=== PATIENT | female | born 1935 | race Caucasian/White ===

== ENCOUNTER 2017-01-03 18:05 | Emergency (ER) | payer MEDICARE, OTHER ==
[2017-01-03] MEDS ORDERED: hydrOXYzine HCL TAB* 25 MG PO ONE (21:08)
[2017-01-03] MEDS ORDERED: predniSONE TAB* 20 MG PO ONE (21:08)
[2017-01-03] MEDS ORDERED: Famotidine TAB* 20 MG PO ONE (21:08)
[2017-01-04 04:01] VITALS: BP 156/74
== END 2017-01-03 23:00 | disposition home or self-care (01) ==
LOC: ED 18:05
DX: R21 Rash and other nonspecific skin eruption (principal)
CPT/HCPCS: 99282; A9270-GY; J7512

== ENCOUNTER 2017-03-15 11:29 | Emergency (ER) | payer MEDICARE, OTHER ==
[2017-03-15] MEDS ORDERED: Ibuprofen TAB* 400 MG PO ONE (12:25)
[2017-03-15] MEDS ORDERED: traMADol TAB* 50 MG PO ONE (12:25)
[2017-03-15 13:16] VITALS: BP 173/66
--- NOTE | 2017-03-15 18:41 | ED ---
Hilario Robertson Auryana, scribed for Teddy Bell MD on 03/15/17 at 1225 . Neck Pain - HPI Summary HPI Summary: 81 year old female presents with neck pain. Patient reports that the pain started 5 days ago while sleeping and was initially locates in the head - reports " whole head- face, sides" and hurts to touch but is now also present in her neck and shoulder. Daughter reports that her symptoms improved Friday and went about normal activities, but on Friday her symptoms worsened. She reports that the pain is a constant throbbing pain and does not radiate. She also c/o of decreased appetite due to the severity of the pain. She denies any fever, chills, photophobia, abdominal pain, arm pain, lower extremity pain, head injuries, or any falls. She reports normal urination and normal ambulation. She reports 1/2 tablet of Tylenol every 3-4 hours without any improvement. She denies any exposure to ticks - no gardening or pets. She is not on any blood thinners. Patient reports 1 similar episode about one year ago that resolved after several months. PMHx is significant for HTN ( medication complaint), but no history of DM. SHx is significant for 3-4 oz. of wine a day but denies any tobacco use. Dr. Prasad is her PCP. - History of Current Complaint Chief Complaint: EDNeckComplaint Stated Complaint: RADIATING NECK PAIN Time Seen by Provider: 03/15/17 11:55 Hx Obtained From: Patient Hx Last Menstrual Period: N/A Onset/Duration Of Injury/Symptoms: Days Timing: Constant Onset/Duration: Gradual Onset, Started days ago, Still Present, Worse Since - FRIDAY- 1 DAY AGO Severity Initially: Mild Severity Currently: Moderate Pain Intensity: 8 Pain Scale Used: 0-10 Numeric Location: Discrete At: - started at whole head and has now radiated down the neck and shoulder Alleviating Factors: Nothing Related History: Similar Episode/Dx As: - see HPI - Allergies/Home Medications Allergies/Adverse Reactions: Allergies Allergy/AdvReac Type Severity Reaction Status Date / Time Penicillins Allergy Unknown Verified 03/15/17 11:32 Reaction Details PMH/Surg Hx/FS Hx/Imm Hx Endocrine/Hematology History: Denies: Hx Diabetes, Hx Thyroid Disease Cardiovascular History: Reports: Hx Hypertension Denies: Hx Pacemaker/ICD Respiratory History: Denies: Hx Asthma, Hx Chronic Obstructive Pulmonary Disease (COPD) GI History: Denies: Hx Ulcer Musculoskeletal History: Denies: Hx Scoliosis Sensory History: Denies: Hx Hearing Aid Neurological History: Reports: Hx Headaches Denies: Other Neuro Impairments/Disorders Psychiatric History: Reports: Hx Panic Disorder - anxiety does ok mri does not like the noise with mri - Cancer History Hx Chemotherapy: No Hx Radiation Therapy: No - Surgical History Surgery Procedure, Year, and Place: LEFT BREAST LUMPECTOMY 1957 - Immunization History Date of Tetanus Vaccine: utd Date of Influenza Vaccine: utd Infectious Disease History: No Infectious Disease History: Denies: Hx Hepatitis, Hx Human Immunodeficiency Virus (HIV), Traveled Outside the [place] in Last 30 Days - Family History Known Family History: Positive: Cardiac Disease, Diabetes - brother -weight related, Other - breast ca - Social History Alcohol Use: Daily Alcohol Amount: 1 glass of wine - apr 3 oz. Substance Use Type: Reports: None, Prescribed Smoking Status (MU): Never Smoked Tobacco Review of Systems Constitutional: Negative Negative: Fever, Chills Eyes: Negative Negative: Photophobia ENT: Negative Cardiovascular: Negative Respiratory: Negative Positive: Other - decreased appetite due to pain. Negative: Abdominal Pain Genitourinary: Negative Positive: Other - head pain that radiates to the neck and to the shoulders Skin: Negative Neurological: Negative Psychological: Normal All Other Systems Reviewed And Are Negative: Yes Physical Exam - Summary Physical Exam Summary: The patient is well-nourished and is in mild acute pain distress. The skin is warm and dry and skin color reflects adequate perfusion. HEENT: The head is normocephalic and atraumatic. The pupils are equal and reactive. The conjunctivae are clear and without drainage. Patient does not have any photophobia. Nares are patent and without drainage. Mouth reveals moist mucous membranes and the throat is without erythema and exudate. The external ears are intact. The ear canals are patent and without drainage. The tympanic membranes are intact. Neck is supple with full range of motion and non-tender. There are no carotid bruits. There is no neck vein distension. There is tenderness at the atlanto- occipital joint. There is no spinous process tenderness. There are spasms over the paracervical vertebrae. Respiratory: Chest is non-tender. Lungs are clear to auscultation and breath sounds are symmetrical and equal. Cardiovascular: Hear is regular rate and rhythm. There is no murmur or rub auscultated. There is no peripheral edema and pulses are symmetrical and equal. Abdomen: The abdomen is soft and non-tender. There are normal bowel sounds heard in all four quadrants and there is no organomegaly palpated. Musculoskeletal: There is no back pain noted. Extremities are non-tender with full range of motion and good motor strength. There is good capillary refill. There is no peripheral edema or calf tenderness elicited. There is no tenderness in the thoracic or lumbar region. Neurological: Patient is alert and oriented to person, place and time. The patient has symmetrical motor strength in all four extremities. Cranial nerves are grossly intact. Deep tendon reflexes are symmetrical and equal in all four extremities. No focal neurological deficits. Psychiatric: The patient has an appropriate affect and does not exhibit any anxiety or depression. Triage Information Reviewed: Yes Vital Signs On Initial Exam: Initial Vitals Temp Pulse Resp BP Pulse Ox 99.5 F 68 16 151/61 96 03/15/17 11:32 03/15/17 11:32 03/15/17 11:32 03/15/17 11:32 03/15/17 11:32 Vital Signs Reviewed: Yes - [place] Coma Scale Coma Scale Total: 15 Diagnostics - Vital Signs Vital Signs Temp Pulse Resp BP Pulse Ox 03/15/17 11:32 99.5 F 68 16 151/61 96 - Laboratory Lab Statement: Any lab studies that have been ordered have been reviewed, and results considered in the medical decision making process. Re-Evaluation - Re-Evaluation First Eval Re-Evaluation Time: 13:06 - patients symptoms are much improved Change: Improved Neck Course/Dx - Course Assessment/Plan: 81 year old female presents with neck pain. Patient reports that the pain started 5 days ago while sleeping and was initially locates in the head - reports "whole head- face, sides" and hurts to touch but is now also present in her neck and shoulder. Daughter reports that her symptoms improved Friday and went about normal activities, but on Friday her symptoms worsened. She reports that the pain is a constant throbbing pain and does not radiate. She also c/o of decreased appetite due to the severity of the pain. She denies any fever, chills, photophobia, abdominal pain, arm pain, lower extremity pain, head injuries, or any falls. She reports normal urination and normal ambulation. She reports 1/2 tablet of Tylenol every 3-4 hours without any improvement. She denies any exposure to ticks - no gardening or pets. She is not on any blood thinners. Patient reports 1 similar episode about one year ago that resolved after several months. PMHx is significant for HTN (medication complaint), but no history of DM. SHx is significant for 3-4 oz. of wine a day but denies any tobacco use. Dr. Prasad is her PCP. Her daughter reports an allergy to a previous medication and that the patient is reluctant to take anything but Tylenol, however, Tylenol has not improved her symptoms. Pain management was discussed and the patient and daughter agreed to try ibuprofen and tramadol for pain management. On re-evaluation, the patient reports improvement of symptoms. Patient will be discharged home with prescription for ibuprofen and tramadol and follow up with PCP. Patient agrees with plan. Dx: neck pain, headache. - Diagnoses Differential Dx/HQI/PQRI: Positive: Other - degenerative disc disease, acute cervical strain and sprain Provider Diagnoses: Neck pain, Headache Discharge - Discharge Plan Condition: Stable Disposition: HOME Prescriptions: Ibuprofen TAB* [Advil TAB*] 400 mg PO Q8H PRN #20 tab PRN Reason: pain traMADol TAB* [Ultram*] 25 mg PO Q8H PRN #15 tab MDD 3 PRN Reason: pain Patient Education Materials: Neck Pain (ED), Acute Headache (ED) Referrals: Mela Prasad MD [Primary Care Provider] - 2 Days The documentation as recorded by the Hilario harrison Auryana accurately reflects the service I personally performed and the decisions made by , Teddy Bell MD.
== END 2017-03-15 13:21 | disposition home or self-care (01) ==
LOC: ED 11:29
DX: M54.2 Cervicalgia (principal); R51 Headache; I10 Essential (primary) hypertension; Z88.0 Allergy status to penicillin; F41.0 Panic disorder [episodic paroxysmal anxiety]
CPT/HCPCS: 99282; A9270-GY

== ENCOUNTER 2017-05-29 11:09 | Inpatient (IN) | payer MEDICARE, OTHER ==
[2017-05-29] MEDS ORDERED: NS 0.9% 1000 ML* 1,000 ML IV ONE (11:54)
[2017-05-29 12:56] LABS: Hematocrit 42 % (35-47); Hemoglobin 13.8 g/dl (12.0-16.0); Mean Corpuscular HGB Conc 33 g/dl (31-36); Mean Corpuscular Hemoglobin 27 pg (27-31); Mean Corpuscular Volume 81 fL (80-97); Mean Platelet Volume 9 um3 (7.4-10.4); Red Blood Count 5.21 10^6/ul (4.0-5.4); Red Cell Distribution Width 18 % (10.5-15); White Blood Count 11.5 10^3/ul (3.5-10.8)
[2017-05-29 13:13] LABS: Albumin 3.6 g/dL (3.2-5.2); BUN/Creatinine Ratio 31.7 (8-20); Calcium 8.7 mg/dL (8.6-10.3); EGFR African American 116.3 (>60); EGFR Non-African American 90.5 (>60); Globulin 2.3 g/dL (2-4); Magnesium 1.7 mg/dL (1.9-2.7); Phosphorus 2.6 mg/dL (2.5-5.0); Potassium 2.9 mmol/L (3.5-5.0); Total Bilirubin 0.8 mg/dL (0.2-1.0); Total Protein 5.9 g/dL (6.4-8.9)
--- NOTE | 2017-05-29 14:36 | HP ---
HISTORY AND PHYSICAL: DATE OF ADMISSION: 05/29/17. HISTORY OF PRESENT ILLNESS: Andria Thurston is an 81-year-old woman admitted with weakness, refusal to take medications, who has been eating and drinking very little since her 5 days ago. He had been sick for 6 years with renal cell cancer, had done fairly well until recently when he was placed on hospice. The patient was present when he . Since then she has been staying in bed. She has been refusing to eat or drink except for perhaps 2 crackers and a small amount of cheese every day. She was brought by her family to the emergency room on 05/26/17. She had a psychiatric evaluation. At that time she was felt to be sad, depressed. It was noted that she had attempted suicide with a drug overdose in 1976, had previous delusional behavior. It was deemed that she was not appropriate for mental health admission at that time. She was medically cleared. She was sent home. Since then she has been staying in bed, not eating. She has expressed psychotic thoughts such as that the devil was coming to take her and that she was going to burn in hell. The family called me. The radiation oncology therapist from [facility], Lalita Vilchis, went to see her yesterday, and felt that she was not able to deal with her grief until her psychiatric condition is addressed. She had been giving away her personal items such as her wedding ring to her daughter, and was felt to be suicide risk. I spoke with Dr. Kuhn who recommended she come back to the emergency room. I am seeing her at this time and will be admitting her. PAST MEDICAL HISTORY: Is otherwise significant for the following medical problems: 1. Hypertension. 2. History of depression, on sertraline. 3. Osteopenia. 4. Chronic neck pain. 5. History of anxiety. PAST SURGICAL HISTORY: Includes breast biopsy, age 22, benign. CURRENT MEDICATIONS: Are as follows but she has not been taking them regularly for several weeks according to the family: 1. Magnesium 250 mg daily. 2. Sertraline 100 mg daily. 3. Tylenol 500 mg half tablet twice a day. 4. Triamcinolone hexacetonide 0.1% b.i.d., p.r.n. 5. Nystatin cream b.i.d., under breast. 6. Hydroxyzine 10 mg q. 4 h. p.r.n. itching. 7. Ciclopirox 0.77% topical cream b.i.d. as needed for rash. 8. Lorazepam 0.5 mg q. 6 h, p.r.n. anxiety. 9. Amlodipine 5 mg daily. 10. Cod liver oil 1 daily . 11. Vitamin D3 400 units daily. 12. Viactiv 500/500/40 one daily. 13. Ibuprofen 200 mg q. 6 h. p.r.n. 14. Triamterene 1 every day. 15. Potassium chloride 10 mEq 2 every day. ALLERGIES: FLUCONAZOLE caused dizziness, PENICILLIN. She previously had a rash this summer, felt to be a drug rash, etiology of this rash was not clearly determined. HABITS: Tobacco none. ETOH, none. FAMILY HISTORY: Positive for osteoporosis, congestive heart failure, AL. SOCIAL AND PERSONAL HISTORY: The patient is retired. She is recently ( see above). She has 2 adult children that live in the area. Another son lives out of the area, his name is Kris. He is here with his , Ivette, fabiola. REVIEW OF SYSTEMS: Generally, she has been very weak. Her appetite has been poor. She denied fevers, chills or sweats. She has been staying in bed. Skin: See above. HEENT: Negative. Nodes: Negative. Heme: Negative. Breasts: Negative. Endocrine: Negative. Respiratory: Negative. Cardiovascular: Hypertension. She has not been taking her medications. GI: Negative. : Negative. FIELD COORDINATOR: Negative. Musculoskeletal: See above. Neuro: See above. Psychiatric: See above. PHYSICAL EXAMINATION GENERAL: She is elderly white female, in no acute distress, lying on the stretcher with her eyes closed, not responding to my questions. She does not follow commands. Family does state that prior to her being taken here by ambulance she was refusing to go and actually crawled away from her bed to get away from the ambulance attendants. VITAL SIGNS: Blood pressure 164/73, pulse 72, respirations 24, temperature 99.1 , O2 sat 92%. HEENT: Atraumatic. Normocephalic. Eyes closed. Mouth closed, unable to open mouth. NECK: Supple. No thyromegaly. CHEST: Clear. HEART: Normal S2, there is a grade 1/6 to 2/6 systolic murmur. ABDOMEN: Soft. Nontender. No masses or organomegaly. Bowel sounds are active. EXTREMITIES: Are without cyanosis, clubbing, or edema. NEUROLOGIC: She does not follow commands. DTR are 1 to 2+ symmetric. SKIN: Is warm and dry. LABORATORY DATA: Laboratory is pending. Labs from 05/26/17, showed a normal CBC with a slightly low MCV. Potassium 2.6 but came up to 3.6. Negative tox screen. Negative UA. IMPRESSION: Patient with weakness and depression status post of her . She is having delusions so will get a psychiatric evaluation, I will give her IV fluids. Labs have been ordered. She will get heparin for DVT prophylaxis. She is a full code. I found her healthcare proxy form and it is her . I have asked the family to try to get her to name another healthcare proxy. We will check a ferritin level because of her low MCV. [id number]/[facility] #: [id number] [facility] HOSPITALCarline
[2017-05-29] MEDS ORDERED: NS 0.9% w/ 40 Meq KCL 1000 ML* 1,000 ML IV SCH (16:00)
[2017-05-29] MEDS ORDERED: Magnesium Sulfate 2 GM IV IVPB ONE (16:00)
[2017-05-29] MEDS: Heparin VIAL(*) 5000 UNITS/ML VIAL (FIVE THOUSAND) SUBCUT SCH ×3 (16:03→22:04)
[2017-05-29] MEDS: amLODIPine TAB* 5 MG PO SCH (16:03)
[2017-05-29] MEDS: KCL 20 MEQ/100 ML IVPREMIX* 20 MEQ/100 ML BAG IV SCH ×2 (18:06→22:04)
[2017-05-30] MEDS: Heparin VIAL(*) 5000 UNITS/ML VIAL (FIVE THOUSAND) SUBCUT SCH ×3 (06:10→22:00)
[2017-05-30] MEDS: amLODIPine TAB* 5 MG PO SCH (09:41)
--- NOTE | 2017-05-30 20:43 | CONS ---
CONSULTATION REPORT: DATE OF CONSULTATION / DICTATION: 05/30/17 ATTENDING PHYSICIAN: Mela Prasad MD CONSULTING PHYSICIAN: Jorge Luis Kuhn MD REASON FOR CONSULT: Suicidal depression. SUBJECTIVE HISTORY: The patient is an 81-year-old recently white female with a history of episodic depression and psychosis who is brought to the hospital by her family due to concerns that she has not been eating or drinking since her of renal cancer 5 days prior. Apparently, he had been sick for 6 years with cancer but had recently in hospice care. According to the family, the patient has been staying in bed since his refusing to eat or drink. She was brought by the family to the emergency room on 05/26/17 where she received a psychiatric evaluation, although her condition was not deemed to require restrictive inpatient care at that time. The family remained quite concerned about her behavior. They indicate that she has a long history of depression and had been hospitalized on several occasions and received successful treatment. They indicated that this recent episode of depression started approximately 1-1/2 years ago when she was the primary caregiver for her . Similar to previous episodes, she was expressing a fear that Jorge was coming to take her due to unforgivable sins that she would burn in hell for. She was also delusionally convinced that her daughter was keeping her still alive at her house. The family indicates that the patient has been nonadherent with her prescribed Zoloft for at least the past month. They indicate that in her home they found a bottle of Zoloft with a fill date of 04/18/17, which had 35 of 45 pills remaining. On exam, the patient is cooperative and expressive. She speaks spontaneously about the difficulty she had taking care of her until he and she does admit that she still believes that he is alive. When asked about the delusions regarding Satan coming to get her, she admits that she is experiencing these thoughts as well. The patient is screened for neurovegetative symptoms of depression and she does endorse sleeplessness, anhedonia, guilt, poor energy, concentration difficulties, lack of appetite, psychomotor retardation, and thoughts of . When asked about her antidepressants, she denies nonadherence insisting that she has kept up with all of her medications. When I spoke with the nurse currently taking care of her, they indicate that she has eaten a little bit and showered today and appears to be more talkative and expressive compared to when she arrived. The patient is still endorsing suicidal ideations believing that the best thing for her would be left alone; however, with a little encouragement, she is willing to come to the behavioral science unit. PAST PSYCHIATRIC HISTORY: The patient indicates she has had between 2 and 3 prior admissions, all here at [facility], but the most recent being well over 20 years ago. She indicates she has been on several antidepressants; however, she does not recall the names of any of these. The patient indicates that she did have a suicide attempt in 1976 whereas it is documented that this was via a drug overdose. The patient believes that she actually attempted to hang herself. The patient has no history of violence towards others. She denies any history of being a victim of abuse or neglect. She has no history of traumatic brain injury. SUBSTANCE ABUSE HISTORY: Negative for alcohol or illicit drugs. She is a nonsmoker. PAST MEDICAL HISTORY: Significant for: 1. Hypertension. 2. Osteopenia. 3. Chronic neck pain. CURRENT MEDICATIONS: 1. Magnesium 250 mg daily. 2. Sertraline 100 mg daily. 3. Tylenol 500 mg twice daily. 4. Triamcinolone hexacetonide 0.1 mg b.i.d. as a p.r.n. 5. Nystatin cream b.i.d. under breasts. 6. Hydroxyzine 10 mg every 4 hours for itching. 7. Ciclopirox 0.77% topical cream b.i.d. as needed for rash. 8. Lorazepam 0.5 mg every 6 hours as a p.r.n. for anxiety. 9. Amlodipine 5 mg p.o. daily. 10. Cod liver oil 1 daily. 11. Vitamin D3 400 units p.o. daily. 12. Viactiv 500/500/40 one daily. 13. Ibuprofen 200 mg every 6 hours as needed for pain. 14. Triamterene 1 every day. 15. Potassium chloride 10 mEq twice daily. ALLERGIES: She is allergic to FLUCONAZOLE, which causes dizziness and PENICILLIN. FAMILY PSYCHIATRIC HISTORY: Noncontributory. SOCIAL HISTORY: The patient was born in [facility], the oldest of 3 children to an intact family. She does have a college degree, which was a bachelor's in science and home economics from a university in [place]. She moved to the [facility] in [place] where her was pursuing an industrial chemicals supervisor degree. She has been x1 and they were 61 years until his 6 days ago. Currently, she is living alone in a one-k[address] building. She has 3 children, a son named Ash, second son named Mynor, and a daughter named Paola. 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 She self-identifies as strongly Anabaptism and attends the [employer] [facility] [employer] [facility] [place], [place]. The patient has no discernable legal or history. MENTAL STATUS EXAM: The patient is an aging white female who is somewhat thin and frail appearing. She is lying in bed, slightly propped up with rosary beads around her wrists and hand and laced through her fingers. She is calm, cooperative. Makes fair eye contact. Her speech is expressive with normal rate , tone, and volume. She is clearly depressed with a constricted affect. Thought process is linear, goal directed. Thought content is significant for delusions that her is still alive and that the devil is coming to get her for her past transgressions. She does deny auditory or visual hallucinations. The patient endorses passive suicidal thoughts, but denies any active plan to end her life. She denies homicidality. Insight and judgment are poor given her limited adherence to antidepressant medication. Cognitively, she is awake and alert with what would appear to be an average intellect. DIAGNOSES: [place] I: Major depressive disorder, recurrent, severe with psychotic features. [place] II: Deferred. ASSESSMENT: The patient is an 81-year-old recently white female with a history of recurrent psychotic depression who was brought to the hospital for the second time in 3 days secondary to failure to thrive, delusions that her is still alive and passive suicidal thoughts. At this time, she is hospitalized on the medical service and receiving IV fluids and her p.o. intake appears to be improving. I do think the patient would benefit from further inpatient care on the behavioral science unit and I am advocating that she be transferred to my service on the behavioral science unit. I have spoken with Dr. Prasad and made her aware of my findings. RECOMMENDATIONS TO PRIMARY TEAM: I recommend that the patient be transferred tomorrow, which is 05/31/17 to the behavioral science unit. This clinician will not be present in the hospital until Friday and therefore, I will refer the matter to the on-call psychiatrist, Dr. Sabino Valladares, who will be the admitting clinician. For now, I do not recommend any changes in her medications , although I discussed with both the patient and her family the introduction of low dose Seroquel 25 mg p.o. q.h.s. as an augmentation strategy for her antidepressant and she should receive some additional antipsychotic benefit from this. Thank you for allowing me to participate in the care of this fang patient, and Psychiatry will continue to follow until she is transferred to our service. [id number]/[facility] #: [id number] [facility]
[2017-05-31] MEDS: Heparin VIAL(*) 5000 UNITS/ML VIAL (FIVE THOUSAND) SUBCUT SCH ×3 (04:10→21:30)
[2017-05-31] MEDS: amLODIPine TAB* 5 MG PO SCH (07:21)
[2017-05-31] MEDS: Sertraline* 100 MG TAB PO SCH (11:06)
--- NOTE | 2017-05-31 14:24 | TRS ---
CC: Jorge Luis Kuhn MD * TRANSFER SUMMARY: DATE OF ADMISSION: 05/29/17 DATE OF DISCHARGE: 06/05/17 TRANSFER DIAGNOSES: 1. Suicidal depression with psychotic features. 2. History of hypertension. 3. Hypokalemia. 4. Low mean corpuscular volume, possible iron deficiency. 5. Hypomagnesemia. 6. Thrombocytosis, possibly related to iron deficiency. 7. Chronic neck pain. 8. History of anxiety. 9. Osteopenia. HISTORY: Andria Thurston is an 81-year-old woman admitted with weakness, refusal to take medications, eating and drinking very little since the of her 5 days previous. Please see the dictated admission note for details of the present illness, past medical history, family history, social and personal history, review of systems, and physical examination. LABORATORY DATA: CBC on 05/29/17, WBC 11.5, H and H 13.8/42, MCV 81 (MCV a few days ago had been 79). PLT 589K. Chemistries: Sodium 141, potassium 2.9, chloride 105, CO2 25, BUN and creatinine 20/0.63, glucose 83, calcium 8.7. Rest of the comprehensive metabolic panel was within normal limits except for magnesium 1.7, total protein 5.9. IMAGING: None. CONSULTATION NOTE: Dr. Kuhn, Psychiatry, 05/30/17, he felt that the patient had a recurrent psychotic depression, who had been brought to the hospital for the second time in 3 days secondary to failure to thrive, delusions that her is still alive and passive suicidal thoughts. He felt that she was improving with being on the medical service and having received IV fluids. He did think that the patient would benefit from further inpatient care on the behavioral science unit and advocated that she be transferred to his service on the behavioral science unit. HOSPITAL COURSE: The patient was admitted. She was placed on IV fluids. Heparin was used for DVT prophylaxis. Because she was not speaking when she first admitted, a MOLST form could not be completed and her previous healthcare proxy had been only her who has now . She was made a full code. This will need to be addressed once her depression has been treated. Heparin was ordered for DVT prophylaxis, but she refused it. She refused labs after her initial admission labs. She did agree to take antihypertensives when her blood pressure was 182/69 on the morning of 10/13/17. She also agreed to take antidepressants. She is being restarted on amlodipine and sertraline. She began to eat and drink. She did pull out her IV. At the time of transfer, she is to be on sertraline 100 mg daily, amlodipine 5 mg daily, vitamin D3 1000 units daily and Seroquel 25 mg which is recommended by Dr. Kuhn. A ferritin is pending, added on to the blood work done when she was admitted. They have been ordered for the day following admission, but she had refused further blood work. Addendum: She was supposed to have been transferred to the behavioral health unit on 05/30 but they did not accept her because of bed availability until . A transfer to [place] [facility] unit was suggested but her family felt it would be a hardship on her and on them for her to go that far away. She did eat and drink. She refused blood work because she felt it sucked the life out of her but did agree to a chest Xray and ECG. She initially felt oversedated with Seroquel 25 mg but then didn't sleep well with 12.5 mg so dose then put back to [address] Kuhn did continue to see her in psychiatric consultation while on the medical floor. She continued to have delusional ideation and passive suicidal thoughts. She did walk around the unit and showered prior to transfer. [id number]/[facility] #: [id number] MTDD
[2017-05-31] MEDS: QUEtiapine TAB* 25 MG PO SCH (21:28)
[2017-06-01] MEDS: Heparin VIAL(*) 5000 UNITS/ML VIAL (FIVE THOUSAND) SUBCUT SCH ×3 (06:43→21:49)
[2017-06-01] MEDS: amLODIPine TAB* 5 MG PO SCH (09:02)
[2017-06-01] MEDS: Sertraline* 100 MG TAB PO SCH (09:02)
--- NOTE | 2017-06-01 09:03 | PN ---
Subjective - Subjective Reason for Note: Progress Note History: I discussed Andria Thurston with Dr. Mela Prasad. She is awaiting transfer to the Behavioral Health Unit. She tells me she is worn out, tired. She slept in "bouts" last night and doesn't feel refreshed. She ate an egg this morning from her breakfast. She has walked to the door of her room and back. She denies any focal symptoms. She exhibits no delusional behavior. Active Problems: Active Problems Bereavement (Acute) Z63.4 Depression (Acute) F32.9 Fatigue (Acute) R53.83 Essential hypertension (Chronic) I10 Current Medications: Current Medications Amlodipine Besylate (Norvasc Tab*) 5 mg PO DAILY [facility] Last Admin: 05/31/17 07:21 Dose: 5 mg Heparin Sodium (Porcine) (Heparin Vial(*)) 5,000 units SUBCUT Q8HR [facility] Last Admin: 06/01/17 06:43 Dose: Not Given Potassium Chloride/Sodium Chloride (Ns 0.9% W/ 40 Meq Kcl 1000 Ml*) 1,000 mls @ 100 mls/hr IV PER RATE [facility] Last Admin: 05/29/17 16:00 Dose: 100 mls/hr Quetiapine Fumarate (Seroquel Tab*) 25 mg PO BEDTIME [facility] Last Admin: 05/31/17 21:28 Dose: 25 mg Sertraline HCl (Zoloft*) 100 mg PO DAILY [facility] Last Admin: 05/31/17 11:06 Dose: 100 mg Home Medications: Home Medications Medication Instructions Recorded Confirmed Type Acetaminophen [Tylenol Extra 250 mg PO BID 01/12/13 05/29/17 History Strength] Triamterene/HCTZ 37.5-25 MG* 1 cap PO DAILY 01/12/13 05/29/17 History [Dyazide*] Calcium W/ Vitamins D & K [Viactiv 1 chw PO DAILY 05/26/17 05/29/17 History 500-500-40 mg-Unt-Mcg] Cholecalciferol TAB* [Vitamin D 400 unit PO DAILY 05/26/17 05/29/17 History TAB*] Ciclopirox Olamine [Ciclopirox] 0.77 % TOPICAL BID 05/26/17 05/29/17 History Cod Liver Oil 1 cap PO DAILY 05/26/17 05/29/17 History Ibuprofen TAB* [Advil TAB*] 200 mg PO Q6HR PRN 05/26/17 05/29/17 History LORazepam TAB(*) [Ativan 0.5 MG 0.5 mg PO Q6HR PRN 05/26/17 05/29/17 History TAB (*)] Magnesium [Essential Magnesium] 250 mg PO DAILY 05/26/17 05/29/17 History Nystatin CREAM* [Nystatin Cream*] 1 applic TOPICAL BID 05/26/17 05/29/17 History Potassium Chlor TAB (NF) 20 meq PO DAILY 05/26/17 05/29/17 History [Kaon-Cl-10 TAB (NF)] Sertraline* [Zoloft*] 100 mg PO DAILY 05/26/17 05/29/17 History Triamcinolone 0.1% CREAM(NF) 1 applic TOPICAL BID 05/26/17 05/29/17 History [Kenalog Cream 0.1%(NF)] Triamcinolone 0.5% CREAM(NF) 1 applic TOPICAL BID 05/26/17 05/29/17 History [Triamcinolone 0.5% CREAM*] amLODIPine TAB* [Norvasc 5 mg TAB*] 5 mg PO DAILY 05/26/17 05/29/17 History hydrOXYzine HCL TAB* [Atarax 10 MG 10 mg PO Q4HR PRN 05/26/17 05/29/17 History TAB*] Allergies: Allergies Allergy/AdvReac Type Severity Reaction Status Date / Time Fluconazole Allergy Unknown Verified 05/29/17 19:03 Reaction Details Penicillins Allergy Unknown Verified 05/29/17 11:47 Reaction Details Objective - Vital Signs Vital Signs: Vital Signs 05/31/17 05/31/17 05/31/17 11:07 15:23 15:32 Temperature 97.8 F 98.3 F Pulse Rate 80 78 Respiratory 20 18 Rate Blood Pressure 152/68 144/57 150/68 (mmHg) O2 Sat by Pulse 97 Oximetry 05/31/17 05/31/17 06/01/17 19:20 20:00 08:03 Temperature 97.9 F 97.9 F Pulse Rate 73 71 Respiratory 16 18 16 Rate Blood Pressure 163/72 166/59 (mmHg) O2 Sat by Pulse 96 96 Oximetry - Intake and Output Intake and Output: Intake & Output 05/29/17 05/30/17 05/31/17 06/01/17 11:59 11:59 11:59 11:59 Intake Total 968 665 600 Output Total 0 675 2 Balance 968 -10 598 Weight 117 lb 3.2 oz Intake: IV Fluids 333 NS (0.9%) 40 meq KCL 333 IVPB 185 NS (0.9%) 40 meq KCL 185 Oral 450 665 600 Output: Urine 0 675 Straight Cath 2 Other: Estimated Void Medium # Bowel Movements 0 0 0 Estimated Stool Amount Medium # Voids 0 1 ADLs: Meal Record Start: 05/29/17 13: 34 Freq: DAILY@0900,1400,1800 Status: Active Created 05/29/17 13:34 System (Rec: 05/29/17 13:34 System MED-C13) Document 05/29/17 18:00 [id number] (Rec: 05/29/17 19:05 [id number] MED-C09) Document 05/30/17 09:00 [id number] (Rec: 05/30/17 09:51 [id number] MED-C09) Document 05/30/17 13:53 [id number] (Rec: 05/30/17 13:55 [id number] MED-C09) Document 05/30/17 18:00 [id number] (Rec: 05/30/17 18:37 [id number] MED-C09) Document 05/31/17 09:00 [id number] (Rec: 05/31/17 09:17 [id number] MED-C09) Document 05/31/17 13:39 [id number] (Rec: 05/31/17 13:39 [id number] MED-C09) Document 05/31/17 17:51 [id number] (Rec: 05/31/17 17:51 [id number] MED-C11) Intake and Output Start: 05/29/17 11: 46 Freq: Status: Cancelled Created 05/29/17 11:46 System (Rec: 05/29/17 11:46 System ED-C26) Intake and Output Start: 05/29/17 13: 34 Freq: DAILY@0600,1400,2200 Status: Cancelled Created 05/29/17 13:34 System (Rec: 05/29/17 13:34 System MED-C13) Intake and Output Start: 05/29/17 14: 47 Freq: 06,14,2200 Status: Active Created 05/29/17 15:01 [id number] (Rec: 05/29/17 15:01 BKG [id number]) Document 05/30/17 06:00 [id number] (Rec: 05/30/17 06:31 [id number] MED-C42) Document 05/30/17 13:53 [id number] (Rec: 05/30/17 13:55 [id number] MED-C09) Document 05/30/17 22:00 [id number] (Rec: 05/30/17 22:14 [id number] MED-C09) Document 05/31/17 06:00 [id number] (Rec: 05/31/17 06:19 [id number] MED-C42) Document 05/31/17 13:20 [id number] (Rec: 05/31/17 13:20 [id number] MED-M01) Document 05/31/17 19:40 [id number] (Rec: 05/31/17 19:40 [id number] MED-C11) Document 06/01/17 06:00 [id number] (Rec: 06/01/17 06:12 [id number] MED-C42) - Physical Exam General Physical Exam Comment: Holding her rosary, sad, but answers questions appropriately. Assessment - Problem List Assessment: Patient Problems Bereavement (Acute) Depression (Acute) Fatigue (Acute) Essential hypertension (Chronic) Plan: Bereavement (Acute)Depression (Acute)Fatigue (Acute) She expresses symptoms of fatigue, but volunteered no other focal symptoms. She is adjusting to her new psychopharmacology. She is medically ready for transfer to the Behavioral Health Unit when a bed becomes available Essential hypertension (Chronic) Acceptable BP at present.
[2017-06-01] MEDS: QUEtiapine TAB* 25 MG PO SCH (21:40)
[2017-06-02] MEDS: Heparin VIAL(*) 5000 UNITS/ML VIAL (FIVE THOUSAND) SUBCUT SCH ×3 (05:04→20:20)
[2017-06-02] MEDS: amLODIPine TAB* 5 MG PO SCH (08:30)
[2017-06-02] MEDS: Sertraline* 100 MG TAB PO SCH (08:31)
--- NOTE | 2017-06-02 11:03 | CONSULT ---
Identification - Patient Identification Reason for Psychiatric Consultation: Suicidal Ideation -: Patient is a 81 year old, F admitted on 05/29/17. - MHU Identification Employment Status: Disabled Hx Psychiatric Hospitalization: Yes History - Objective HPI: Andria is seen on 4N for follow up as she awaits an available bed on the inpatient psychiatric unit. I understand that she remains neurovegetative and depressed over the weekend and did not tolerate 25mg strength quetiapine secondary to sedation. On exam she is calm and polite, speaking clearly and spontaneously, albeit softly. "I've been thinking about being in the light. It 's something I can't stop obsessing about. It's opposed to all this darkness." I ask if this is a suicidal statement, and she essentially agrees that she views as a blessing that would deliver her from her hardships. She remains delusional that her is still alive and remains guilty about perceived past moral shortcomings. She has eaten some of the eggs on her breakfast plate but staff reports indicate she has poor caloric intake. Exam Appearance: Thin Framed Hygiene: Normal Grooming: Fairly Well Kept Psychomotor Activities: Abnormal-Decreased Exhibits Abnormal Movement: No Attitude and Relatedness: Cooperative Eye Contact: Fair - Speech Quality: Unpressured Latencies: Normal Quantity: Appropriate Patient's Decription of Mood: "Sad" Observed Affect: Constricted Affect Consistent with: Dysphoria Patient's Thought Process: Coherent Thought Content: Yes Passive Wish, Yes Paranoid Ideation, No Suicidal Planning, No Homicidal Ideation Experiencing Hallucinations: Yes Type of Hallucinations: Visual: Yes, Auditory: No, Command: No Level of Consciousness: Lethargic Orientation: Yes Intact, Yes Orientated to Time, Yes Orientated to Place, Yes Orientated to Person Impulse Control: Tenuous Insight and Judgement: Poor Impression - Impression Clinical Impression: 81 y.o. recently white female with a history of episodic psychotic depression and 2-3 historic admissions to the BSU, who is currently admitted to medicine for failure to thrive; consulted on secondary to passive SI and delusional thoughts that her is still alive and that Satan is coming to take her soul. Inpatient DSM-IV Dx: MDD, recurrent, severe with psychotic features Merits Inpatient Hospitalization: Yes Problem List - MHU Problems Type of Problem: Mood Status of Problem: Active Plan - Treatment Plan Treatment Plan: Patient awaits transfer to BSU, pending female bed availability. Recommend continuation of sertraline 100mg PO qday. Will lower quetiapine to 12.5mg PO qhs. Psychiatry will continue to follow until transferred to our service. Continued Medication Management: Different Medication Medications: Current Medications Amlodipine Besylate (Norvasc Tab*) 5 mg PO DAILY [facility] Last Admin: 06/02/17 08:30 Dose: Not Given Heparin Sodium (Porcine) (Heparin Vial(*)) 5,000 units SUBCUT Q8HR [facility] Last Admin: 06/02/17 05:04 Dose: Not Given Potassium Chloride/Sodium Chloride (Ns 0.9% W/ 40 Meq Kcl 1000 Ml*) 1,000 mls @ 100 mls/hr IV PER RATE [facility] Last Admin: 05/29/17 16:00 Dose: 100 mls/hr Non Formulary Med* (Magnesium 250 Mg) 1 admin PO DAILY [facility] Potassium Chloride (Klor Con Er Tab*) 20 meq PO DAILY [facility] Quetiapine Fumarate (Seroquel Tab*) 12.5 mg PO BEDTIME [facility] Sertraline HCl (Zoloft*) 100 mg PO DAILY [facility] Last Admin: 06/02/17 08:31 Dose: Not Given Triamterene/HCTZ (Dyazide Cap*) 1 cap PO DAILY [facility] - Discharge Plan Discharge Plan: Inpatient Hospitalization
[2017-06-02] MEDS: Triamterene/HCTZ 37.5-25 MG* CAP PO SCH (12:07)
[2017-06-02] MEDS: Potassium Chlor TAB* 10 MEQ TAB.ER PO SCH ×2 (12:07→12:13)
[2017-06-02] MEDS: MAGNESIUM 250 MG PO SCH (12:14)
[2017-06-02] MEDS: QUEtiapine TAB* 25 MG PO SCH (20:22)
[2017-06-03] MEDS: Heparin VIAL(*) 5000 UNITS/ML VIAL (FIVE THOUSAND) SUBCUT SCH ×3 (05:19→21:05)
[2017-06-03] MEDS: Sertraline* 100 MG TAB PO SCH (12:59)
[2017-06-03] MEDS: Triamterene/HCTZ 37.5-25 MG* CAP PO SCH (12:59)
[2017-06-03] MEDS: MAGNESIUM 250 MG PO SCH (13:00)
[2017-06-03] MEDS: amLODIPine TAB* 5 MG PO SCH (13:00)
[2017-06-03] MEDS: Potassium Chlor TAB* 10 MEQ TAB.ER PO SCH (13:00)
--- NOTE | 2017-06-03 13:54 | CONSULT ---
Identification - Patient Identification Reason for Psychiatric Consultation: Suicidal Ideation -: Patient is a 81 year old, F admitted on 05/29/17. - MHU Identification Employment Status: Disabled Hx Psychiatric Hospitalization: Yes History - Objective HPI: Andria is seen on 4N for follow up as she awaits an available bed on the inpatient psychiatric unit. She remains depressed and withdrawn, although cooperative and sweet on interaction. The patient is aware that she is pending admission to the B[facility] and expresses a preference to this, over the alternative of being transferred to an outside facility. I spoke with both Dr. Prasad and the patient's daughter, Paola ([phone]), who are mutually in favor of waiting for a BSU bed as opposed to seeking transfer to specialty geriatric psych care. The patient remains delusional that her is still alive and is still endorsing passive suicidality. Exam Appearance: Thin Framed Hygiene: Normal Grooming: Fairly Well Kept Psychomotor Activities: Abnormal-Decreased Exhibits Abnormal Movement: No Attitude and Relatedness: Cooperative Eye Contact: Fair - Speech Quality: Unpressured Latencies: Normal Quantity: Appropriate Patient's Decription of Mood: "Sad" Observed Affect: Constricted Affect Consistent with: Dysphoria Patient's Thought Process: Coherent Thought Content: Yes Passive Wish, Yes Paranoid Ideation, No Suicidal Planning, No Homicidal Ideation Experiencing Hallucinations: Yes Type of Hallucinations: Visual: Yes, Auditory: No, Command: No Level of Consciousness: Lethargic Orientation: Yes Intact, Yes Orientated to Time, Yes Orientated to Place, Yes Orientated to Person Impulse Control: Tenuous Insight and Judgement: Poor Impression - Impression Clinical Impression: 81 y.o. recently white female with a history of episodic psychotic depression and 2-3 historic admissions to the B[facility], who is currently admitted to medicine for failure to thrive; consulted on secondary to passive SI and delusional thoughts that her is still alive and that Aakashan is coming to take her soul. Inpatient DSM-IV Dx: MDD, recurrent, severe with psychotic features Merits Inpatient Hospitalization: Yes Problem List - MHU Problems Type of Problem: Mood Status of Problem: Active Plan - Treatment Plan Treatment Plan: Patient awaits transfer to B[facility], pending female bed availability. Recommend continuation of sertraline 100mg PO qday and quetiapine 12.5mg PO qhs. Psychiatry will continue to follow until transferred to our service. Continued Medication Management: Start Medication Medications: Current Medications Amlodipine Besylate (Norvasc Tab*) 5 mg PO DAILY [facility] Last Admin: 06/03/17 13:00 Dose: 5 mg Heparin Sodium (Porcine) (Heparin Vial(*)) 5,000 units SUBCUT Q8HR [facility] [place] Last Admin: 06/03/17 13:00 Dose: Not Given Potassium Chloride/Sodium Chloride (Ns 0.9% W/ 40 Meq Kcl 1000 Ml*) 1,000 mls @ 100 mls/hr IV PER RATE [facility] [place] Last Admin: 05/29/17 16:00 Dose: 100 mls/hr Non Formulary Med* (Magnesium 250 Mg) 1 admin PO DAILY [facility] [place] Last Admin: 06/03/17 13:00 Dose: Not Given Potassium Chloride (Klor Con Er Tab*) 20 meq PO DAILY [facility] [place] Last Admin: 06/03/17 13:00 Dose: 20 meq Quetiapine Fumarate (Seroquel Tab*) 12.5 mg PO BEDTIME [facility] [place] Last Admin: 06/02/17 20:22 Dose: 12.5 mg Sertraline HCl (Zoloft*) 100 mg PO DAILY [facility] [place] Last Admin: 06/03/17 12:59 Dose: 100 mg Triamterene/HCTZ (Dyazide Cap*) 1 cap PO DAILY [facility] Last Admin: 06/03/17 12:59 Dose: 1 cap - Discharge Plan Discharge Plan: Inpatient Hospitalization
--- NOTE | 2017-06-03 15:52 | RAD ---
INDICATION: Hypertension COMPARISON: None TECHNIQUE: PA and lateral dual-energy views were obtained. FINDINGS: Bones/Soft Tissues: There are no acute bony findings. Cardiomediastinal: The cardiomediastinal silhouette is normal. Lungs: There are no infiltrates. Pleura: There are no pleural effusions. Other: None IMPRESSION: NO ACTIVE DISEASE.
[2017-06-03] MEDS: QUEtiapine TAB* 25 MG PO SCH (21:06)
[2017-06-04] MEDS: Heparin VIAL(*) 5000 UNITS/ML VIAL (FIVE THOUSAND) SUBCUT SCH ×3 (04:39→22:21)
[2017-06-04] MEDS: Sertraline* 100 MG TAB PO SCH (10:00)
[2017-06-04] MEDS: Potassium Chlor TAB* 10 MEQ TAB.ER PO SCH (10:00)
[2017-06-04] MEDS: amLODIPine TAB* 5 MG PO SCH (10:00)
[2017-06-04] MEDS: Triamterene/HCTZ 37.5-25 MG* CAP PO SCH (10:01)
[2017-06-04] MEDS: MAGNESIUM 250 MG PO SCH (10:01)
[2017-06-04] MEDS ORDERED: Acetaminophen TAB* 325 MG PO PRN (10:28)
[2017-06-04] MEDS ORDERED: Magnesium Hydroxide LIQ* 30 ML UDC PO PRN (10:28)
[2017-06-04] MEDS: Ibuprofen TAB* 400 MG PO PRN (10:37)
--- NOTE | 2017-06-04 17:42 | CONSULT ---
Identification - Patient Identification Reason for Psychiatric Consultation: Suicidal Ideation -: Patient is a 81 year old, F admitted on 05/29/17. - MHU Identification Employment Status: Disabled Hx Psychiatric Hospitalization: Yes History - Objective HPI: Andria is seen on 4N for follow up as she awaits an available bed on the inpatient psychiatric unit. She remains depressed and withdrawn and complains today of sleep disturbance with machinist class b awakening. "The medicine you're giving me at night helps me fall asleep but it wears off and I'm up all night." She is highly somatic, complaining of weakness, dizziness and lethargy. I spoke with her her son and daughter in person and updated them on her progress. They deny that she ever demonstrated any historical symptoms consistent with caryn, such as euphoria, hyperverbal speech, increased goal-directed or indiscrete behaviors. Family remains supportive of transfer to BSU pending bed availability. Exam Appearance: Thin Framed Hygiene: Normal Grooming: Fairly Well Kept Psychomotor Activities: Abnormal-Decreased Exhibits Abnormal Movement: No Attitude and Relatedness: Cooperative Eye Contact: Fair - Speech Quality: Unpressured Latencies: Normal Quantity: Appropriate Patient's Decription of Mood: "Sad" Observed Affect: Constricted Affect Consistent with: Dysphoria Patient's Thought Process: Coherent Thought Content: Yes Passive Wish, Yes Paranoid Ideation, No Suicidal Planning, No Homicidal Ideation Experiencing Hallucinations: Yes Type of Hallucinations: Visual: Yes, Auditory: No, Command: No Level of Consciousness: Lethargic Orientation: Yes Intact, Yes Orientated to Time, Yes Orientated to Place, Yes Orientated to Person Impulse Control: Tenuous Insight and Judgement: Poor Impression - Impression Clinical Impression: 81 y.o. recently white female with a history of episodic psychotic depression and 2-3 historic admissions to the BSU, who is currently admitted to medicine for failure to thrive; consulted on secondary to passive SI and delusional thoughts that her is still alive and that Aakashan is coming to take her soul. Merits Inpatient Hospitalization: Yes Problem List - MHU Problems Type of Problem: Mood Status of Problem: Active Plan - Treatment Plan Treatment Plan: Patient awaits transfer to B[facility], pending female bed availability. Recommend continuation of sertraline 100mg PO qday. Will increase quetiapine to 25mg PO qhs. Will order PT/OT evals for likely deconditioning and to provide behavioral activation. Psychiatry will continue to follow until transferred to our service. Continued Medication Management: Start Medication Medications: Current Medications Acetaminophen (Tylenol Tab*) 650 mg PO Q4H PRN PRN Reason: HEADACHE Amlodipine Besylate (Norvasc Tab*) 5 mg PO DAILY [facility] Last Admin: 06/04/17 10:00 Dose: 5 mg Heparin Sodium (Porcine) (Heparin Vial(*)) 5,000 units SUBCUT Q8HR [facility] Last Admin: 06/04/17 13:24 Dose: Not Given Potassium Chloride/Sodium Chloride (Ns 0.9% W/ 40 Meq Kcl 1000 Ml*) 1,000 mls @ 100 mls/hr IV PER RATE [facility] Last Admin: 05/29/17 16:00 Dose: 100 mls/hr Ibuprofen (Motrin Tab*) 400 mg PO Q4H PRN PRN Reason: PAIN OR HEADACHE Last Admin: 06/04/17 10:37 Dose: 400 mg Magnesium Hydroxide (Milk Of Magnesia Liq*) 30 ml PO DAILY PRN PRN Reason: CONSTIPATION Non Formulary Med* (Magnesium 250 Mg) 1 admin PO DAILY [facility] Last Admin: 06/04/17 10:01 Dose: Not Given Potassium Chloride (Klor Con Er Tab*) 20 meq PO DAILY [facility] Last Admin: 06/04/17 10:00 Dose: 20 meq Sertraline HCl (Zoloft*) 100 mg PO DAILY [facility] Last Admin: 06/04/17 10:00 Dose: 100 mg Triamterene/HCTZ (Dyazide Cap*) 1 cap PO DAILY [facility] Last Admin: 06/04/17 10:01 Dose: 1 cap - Discharge Plan Discharge Plan: Inpatient Hospitalization
[2017-06-04] MEDS ORDERED: QUEtiapine TAB* 25 MG PO SCH (21:00)
[2017-06-05] MEDS: Heparin VIAL(*) 5000 UNITS/ML VIAL (FIVE THOUSAND) SUBCUT SCH ×2 (05:08→15:10)
[2017-06-05 09:24] LABS: Urine Bilirubin Negative (Negative); Urine Glucose Negative (Negative); Urine Nitrite Negative (Negative)
[2017-06-05] MEDS: MAGNESIUM 250 MG PO SCH (09:42)
[2017-06-05] MEDS: Sertraline* 100 MG TAB PO SCH (09:44)
[2017-06-05] MEDS: Triamterene/HCTZ 37.5-25 MG* CAP PO SCH (09:44)
[2017-06-05] MEDS: amLODIPine TAB* 5 MG PO SCH (09:45)
[2017-06-05] MEDS: Potassium Chlor TAB* 10 MEQ TAB.ER PO SCH (09:45)
[2017-06-05 11:47] VITALS: BP 133/53
--- NOTE | 2017-06-05 14:27 | CONSULT ---
Identification - Patient Identification Reason for Psychiatric Consultation: Suicidal Ideation -: Patient is a 81 year old, F admitted on 05/29/17. - MHU Identification Employment Status: Disabled Hx Psychiatric Hospitalization: Yes History - Objective HPI: Andria is seen on 4N for follow up as she awaits an available bed on the inpatient psychiatric unit. She remains depressed and withdrawn with delusions and passive SI. Sleeping slightly better with increased quetiapine. Patient aware of transfer this afternoon to [facility] and agreeable. Lab Results: Laboratory Tests 06/05/17 09:10 Urine Color Yellow Urine Appearance Cloudy Urine pH 7.0 Ur Specific [place] 1.014 Urine Protein Negative Urine Ketones Negative Urine Blood Negative Urine Nitrate Negative Urine Bilirubin Negative Urine Urobilinogen Negative Ur Leukocyte Esterase Negative Urine Glucose Negative Exam Appearance: Thin Framed Hygiene: Normal Grooming: Fairly Well Kept Psychomotor Activities: Abnormal-Decreased Exhibits Abnormal Movement: No Attitude and Relatedness: Cooperative Eye Contact: Fair - Speech Quality: Unpressured Latencies: Normal Quantity: Appropriate Patient's Decription of Mood: "Sad" Observed Affect: Constricted Affect Consistent with: Dysphoria Patient's Thought Process: Coherent Thought Content: Yes Passive Wish, Yes Paranoid Ideation, No Suicidal Planning, No Homicidal Ideation Experiencing Hallucinations: Yes Type of Hallucinations: Visual: Yes, Auditory: No, Command: No Level of Consciousness: Lethargic Orientation: Yes Intact, Yes Orientated to Time, Yes Orientated to Place, Yes Orientated to Person Impulse Control: Tenuous Insight and Judgement: Poor Impression - Impression Clinical Impression: 81 y.o. recently white female with a history of episodic psychotic depression and 2-3 historic admissions to the [facility], who is currently admitted to medicine for failure to thrive; consulted on secondary to passive SI and delusional thoughts that her is still alive and that [facility] is coming to take her soul. Merits Inpatient Hospitalization: Yes Problem List - MHU Problems Type of Problem: Mood Status of Problem: Active Plan - Treatment Plan Treatment Plan: Transfer today to [facility]. Continued Medication Management: Start Medication Medications: Current Medications Acetaminophen (Tylenol Tab*) 650 mg PO Q4H PRN PRN Reason: HEADACHE Amlodipine Besylate (Norvasc Tab*) 5 mg PO DAILY [facility] Last Admin: 06/05/17 09:45 Dose: 5 mg Heparin Sodium (Porcine) (Heparin Vial(*)) 5,000 units SUBCUT Q8HR [facility] Last Admin: 06/05/17 05:08 Dose: Not Given Potassium Chloride/Sodium Chloride (Ns 0.9% W/ 40 Meq Kcl 1000 Ml*) 1,000 mls @ 100 mls/hr IV PER RATE [facility] Last Admin: 05/29/17 16:00 Dose: 100 mls/hr Ibuprofen (Motrin Tab*) 400 mg PO Q4H PRN PRN Reason: PAIN OR HEADACHE Last Admin: 06/04/17 10:37 Dose: 400 mg Magnesium Hydroxide (Milk Of Magnesia Liq*) 30 ml PO DAILY PRN PRN Reason: CONSTIPATION Non Formulary Med* (Magnesium 250 Mg) 1 admin PO DAILY [facility] Last Admin: 06/05/17 09:42 Dose: Not Given Potassium Chloride (Klor Con Er Tab*) 20 meq PO DAILY [facility] Last Admin: 06/05/17 09:45 Dose: 20 meq Quetiapine Fumarate (Seroquel Tab*) 25 mg PO BEDTIME [facility] Last Admin: 06/04/17 21:14 Dose: 25 mg Sertraline HCl (Zoloft*) 100 mg PO DAILY [facility] Last Admin: 06/05/17 09:44 Dose: 100 mg Triamterene/HCTZ (Dyazide Cap*) 1 cap PO DAILY [facility] Last Admin: 06/05/17 09:44 Dose: 1 cap - Discharge Plan Discharge Plan: Inpatient Hospitalization
[2017-06-05] MEDS: Ibuprofen TAB* 400 MG PO PRN (15:10)
== END 2017-06-05 15:25 | DRG 885 ==
LOC: ED 11:09 → MED 13:12
PROVIDERS: ADMIT Internal Medicine Geriatric Medicine; ATTEND Internal Medicine Geriatric Medicine
DX: F33.3 Major depressive disorder, recurrent, severe with psychotic symptoms (principal); E83.42 Hypomagnesemia; E61.1 Iron deficiency; E87.6 Hypokalemia; I10 Essential (primary) hypertension; F41.9 Anxiety disorder, unspecified; G89.29 Other chronic pain; M85.80 Other specified disorders of bone density and structure, unspecified site; M54.2 Cervicalgia; R53.1 Weakness; R62.7 Adult failure to thrive; D47.3 Essential (hemorrhagic) thrombocythemia; R51 Headache; Z88.0 Allergy status to penicillin; Z63.4 Disappearance and death of family member; Z88.8 Allergy status to other drugs, medicaments and biological substances; Z82.49 Family history of ischemic heart disease and other diseases of the circulatory system
CPT/HCPCS: 36415; 71020; 80053; 80307; 80320; 80329; 81003; 83735; 84100; 84132; 84443; 85025; 93005; A9270-GY; G0480; J1644; J3475; J3480

== ENCOUNTER 2019-01-15 23:34 | Inpatient (IN) | payer MEDICARE, OTHER ==
--- NOTE | 2019-01-15 23:50 | ED ---
Head Injury - HPI Summary HPI Summary: 83 yo female presents to [facility] ED via ambulance s/p fall. Pt tells me that she lives alone at [facility]. She is unable to tell me when she fell, but states it was sometime after dinner around 1700. She remembers getting up from bed, but the next thing she remembers is waking up on the floor. Unsure how long she was on the floor. She called for assistance and [facility] members called an ambulance for her. She sustained an abrasion to her right scapula. She says that she has a headache and right hip pain currently and is asking for tylenol. She says that she was unable to walk s/p fall because her "legs gave out". She denies dizziness, vision changes, SOB, chest pain, abdominal pain, vomiting. PMHx CLL and HTN. - History Of Current Complaint Stated Complaint: "FALL" PER EMS Time Seen by Provider: 01/15/19 23:49 Hx Obtained From: Patient Hx Last Menstrual Period: N/A Severity Currently: Moderate Severity Initially: Moderate Pain Intensity: 5 Pain Scale Used: 0-10 Numeric - Allergies/Home Medications Allergies/Adverse Reactions: Allergies Allergy/AdvReac Type Severity Reaction Status Date / Time fluconazole Allergy Unknown Verified 01/16/19 01:34 Reaction Details Penicillins Allergy Unknown Verified 01/16/19 01:34 Reaction Details Home Medications: Home Medications Aspirin [Aspirin EC] 81 mg PO DAILY 01/16/19 [History Confirmed 01/16/19] Cholecalciferol TAB* [Vitamin D TAB*] 1 tab PO DAILY 01/16/19 [History Confirmed 01/16/19] Lisinopril [Lisinopril 2.5 MG-] 2.5 mg PO DAILY 01/16/19 [History Confirmed 09/05] PMH/Surg Hx/FS Hx/Imm Hx Endocrine/Hematology History: Denies: Hx Diabetes, Hx Thyroid Disease Cardiovascular History: Reports: Hx Angina - pt reports, Hx Hypertension, Other Cardiovascular Problems/Disorders - pt reports an arrythmia Denies: Hx Pacemaker/ICD Respiratory History: Denies: Hx Asthma, Hx Chronic Obstructive Pulmonary Disease (COPD) GI History: Reports: Hx Hiatal Hernia - pt reports Denies: Hx Ulcer Musculoskeletal History: Denies: Hx Scoliosis Sensory History: Reports: Hx Contacts or Glasses - glasses w/ pt Denies: Hx Hearing Aid Opthamlomology History: Reports: Hx Contacts or Glasses - glasses w/ pt Neurological History: Reports: Hx Headaches Denies: Other Neuro Impairments/Disorders Psychiatric History: Reports: Hx Anxiety, Hx Depression, Hx Panic Disorder, Hx Inpatient Treatment - pt reports prior admission here twice, Hx Community Mental Health Tx - past, Hx Suicide Attempt - pt reports "years ago" Denies: Hx Attention Deficit Hyperactivity Disorder, Hx Eating Disorder, Hx Post Traumatic Stress Disorder, Hx Schizophrenia, Hx Bipolar Disorder, Hx of Violent Episodes Against Others, Hx Substance Abuse - Cancer History Cancer Type, Location and Year: CLL Hx Chemotherapy: No Hx Radiation Therapy: No - Surgical History Surgery Procedure, Year, and Place: LEFT BREAST LUMPECTOMY 1957 - Immunization History Date of Tetanus Vaccine: utd Date of Influenza Vaccine: utd Infectious Disease History: Denies: Hx Hepatitis, Hx Human Immunodeficiency Virus (HIV) - Family History Known Family History: Positive: Cardiac Disease, Diabetes - brother -weight related, Other - breast ca - Social History Alcohol Use: Rare Alcohol Amount: pt reports drinking "a few ounces of wine with meals" Substance Use Type: Reports: None Smoking Status (MU): Never Smoked Tobacco Length of Time of Smoking/Using Tobacco: never smoked Have You Smoked in the Last Year: No Review of Systems Constitutional: Negative Eyes: Negative ENT: Negative Cardiovascular: Negative Respiratory: Negative Gastrointestinal: Negative Genitourinary: Negative Musculoskeletal: Other - Right hip pain. Head pain. Back pain. Positive: Other - Abrasion right scapula Neurological: Negative Psychological: Normal All Other Systems Reviewed And Are Negative: Yes Physical Exam - Summary Physical Exam Summary: GENERAL: NAD. WDWN. No pain distress. SKIN: Right scapula with 2cm superficial abrasion. HEENT: Head: AT/NC. No raccoon eyes or battles sign. Eyes: PERRLA. EOM intact. Ears: Hearing grossly normal. No hemotympanum NECK: Supple. FROM. TTP cervical spine. CHEST: CTAB. No r/r/w. No accessory muscle use. Breathing comfortably and in no distress. CV: RRR. Pulses intact. Brisk cap refill. ABDOMEN: Soft. NTTP. Bowel sounds present MSK: RIGHT HIP: TTP. No obvious deformity. Unable to flex hip on right due to pain. FROM in B/L UEs with symmetric strength. NEURO: A&Ox3. Ability to follow 2-step directions, and attention intact. CN: II : Peripheral gibbons intact. Vision normal. III, IV, : EOMI. No nystagmus. PERRLA. V: Sensations intact and symmetric. Opens mouth and clenches teeth. VII : No facial asymmetry. Forehead wrinkles. Grins, shuts eyes, frowns, puffs cheeks. VIII: Hearing intact to finger rub. IX, X: Swallows and coughs. Uvula midline. XI: Shrugs shoulders. Turns head against resistance. XII: No tongue deviation [id number] are intact. Normal speech. No facial drooping. PSYCH: Age appropriate behavior. Triage Information Reviewed: Yes Vital Signs On Initial Exam: Vital Signs: Temp Pulse Resp BP Pulse Ox 98.0 F 108 20 179/107 92 01/15/19 23:50 01/15/19 23:50 01/15/19 23:50 01/15/19 23:50 01/15/19 23:50 Vital Signs Reviewed: Yes Diagnostics - Laboratory Result Diagrams: 01/16/19 06:16 01/16/19 06:16 Lab Statement: Any lab studies that have been ordered have been reviewed, and results considered in the medical decision making process. 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 Non-Paretic Hand: Both Correctly Best Gaze (Only Horizontal Eye Movement): Normal Visual Field Testing: No Visual Loss Facial Paresis-Pt to Smile & Close Eyes or [place]imace Symmetry: Normal/Symmetrical Motor Function - Right Arm: No Drift-Holds 10 Seconds Motor Function - Left Arm: No Drift-Holds 10 Seconds Motor Function - Right Leg: Effort Against [place] - due to pain Motor Function - Left Leg: No Drift-Holds 10 Seconds Limb Ataxia-Must be out of Proportion to Weakness Present: Absent Sensory (Use Pinprick to Test Arms/Legs/Trunk/Face): Normal Best Language (Describe Picture, Name Items): No Aphasia Dysarthria (Read Several Words): Normal Extinction and Inattention: No Abnormality Total Score: 2 Re-Evaluation - Re-Evaluation First Eval Re-Evaluation Time: 01:30 Change: Unchanged Comment: Call from [facility]:IMPRESSION: There is a right subdural hematoma measuring up to 15 mm in thickness with. mixed primarily intermediate attenuation components overlying the frontal,. temporal and parietal lobes. There is associated midline shift right to left of. 7 mm at the level of the mildly distorted ventricles. ASSESSMENT: ASPECTS ([facility] Stroke Program Early CT Score) is 10. Call to Dr. Gonzalez of neurosurgery at 0140. Alerted by RN that pt O2% down to 86% on RA. Placed on 2L and O2% up to 94%. Return call shortly after by Jeanie MARIANO with Dr. Gonzalez, they will see pt in ED. Advised to give 1gm Keppra, make NPO, and keep SBP <160. Second Eval Re-Evaluation Time: 02:04 Change: Unchanged Comment: Spoke with Paola Thurston, pt's daughter and emergency contact on file. Paola said that she took a sleeping pill in the evening and is unable to come in , but wishes to honor mother's wishes and what ever she (pt) wants to do. I made her aware pt will likely need surgery emergently and, given her condition, may deteriorate quickly prior to this. Strongly recommend Paola come to the ED. Paola voiced understanding Third Eval Re-Evaluation Time: 02:15 Change: Worse Comment: Pt vomiting. Diaphoretic. Zofran ordered. Noted to be drowsy Fourth Eval Re-Evaluation Time: 02:20 Change: Unchanged Comment: Neurosurgery GARCÍA Ware into eval pt Fifth Eval Re-Evaluation Time: 02:45 Change: Unchanged Comment: Dr. Mayfield anesthesiologist in to see pt for emergent surgery by Dr. Gonzalez. Verbal consent obtain from daughter Paola via phone. I witnessed. All questions answered. Head Injury Course/Dx Course Of Treatment: NIH score 2 - points due to right hip pain and inability to hold extremity. EKG: Sinus tachycardia 110bpm without ST changes as read by Dr. Robert. CT brain call from [facility]: IMPRESSION: There is a right subdural hematoma measuring up to 15 mm in thickness with. mixed primarily intermediate attenuation components overlying the frontal,. temporal and parietal lobes. There is associated midline shift right to left of. 7 mm at the level of the mildly distorted ventricles. ASSESSMENT: ASPECTS ([facility] Stroke Program Early CT Score) is 10. CT cervical spine: IMPRESSION: No acute fracture or subluxation in the cervical spine. CT chest/abd/pelvis : IMPRESSION: 1. Evaluation of parenchymal organs is limited by lack of intravenous contrast. as well as scatter artifact. No gross laceration or suspicious mass. 2. Enlarged liver. 3. Minimal free fluid. 4. Osteopenia and moderate to severe skeletal degenerative change. Degenerative. scoliosis. No acute fracture is seen although motion artifact is problematic at. some levels. 5. No other acute disease seen on nonenhanced study. As Above. Upon call from [facility] as above , neurosurgery was contacted and advised to give 1gm Keppra and target SBP < 160. Pt's BP at that time was noted to be elevated at 207/118 compared to initial presentation (179/107). Given her low BMI and frailty she was given Labetalol 5mg and BP lowered to 174/97 with HR in the 80s. She was given another 5mg of Labetalol and tagert BP was achieved at 153/97 with HR remaining in the 70s-80s. Jeanie MARIANO and Dr. Gonzalez at bedside to eval pt and planned for emergent evacuation of SDH. I spoke to Poala (daughter) with Dr. Mayfield of anesthesia and obtained verbal consent for anesthesia. Risks were made aware to daughter and all questions answered. Just prior to leaving for the OR pt was significantly drowsy, but arousable and opened eyes when prompted. Answered yes or no to most questions. States no pain. Pt to OR. - Diagnoses Provider Diagnoses: Subdural hematoma - Physician Notifications Discussed Care Of Patient With: Toni Gonzalez - GARCÍA Ware. Time Discussed With Above Provider: 01:59 - Systolic <160. NPO. Keppra 1gm. Likely surgery now or in the morning. Instructed by Provider To: MD Will See In ED - Critical Care Time Critical Care Time: 75-104 min Discharge - Sign-Out/Discharge Documenting (check all that apply): Patient Departure All imaging exams completed and their final reports reviewed: Yes Patient Received Moderate/Deep Sedation with Procedure: No - Discharge Plan Condition: Guarded Disposition: ADMITTED TO [facility] - Billing Disposition and Condition Condition: GUARDED Disposition: Admitted to [facility]
[2019-01-15] MEDS ORDERED: Acetaminophen TAB* 325 MG PO ONE (23:56)
[2019-01-16 00:38] LABS: Hematocrit 40 % (35-47); Hemoglobin 11.7 g/dL (12.0-16.0); Mean Corpuscular HGB Conc 30 g/dL (31-36); Mean Corpuscular Hemoglobin 21 pg (27-31); Mean Corpuscular Volume 71 fL (80-97); Red Blood Count 5.58 10^6 /uL (3.70-4.87); Red Cell Distribution Width 21 % (10.5-15); White Blood Count 86.3 10^3/uL (3.5-10.8)
[2019-01-16 00:43] LABS: ALT 15 U/L (7-52); AST 22 U/L (13-39); Albumin 4.1 g/dL (3.2-5.2); Albumin/Globulin Ratio 2.2 (1-3); Alkaline Phosphatase 94 U/L (34-104); Anion Gap 10 mmol/L (2-11); Blood Urea Nitrogen 40 mg/dL (6-24); CO2 Carbon Dioxide 18 mmol/L (22-32); Calcium 8.9 mg/dL (8.6-10.3); Chloride 106 mmol/L (101-111); EGFR African American 42.3 (>60); Globulin 1.9 g/dL (2-4); Glucose 182 mg/dL (70-100); Potassium 4.8 mmol/L (3.5-5.0); Sodium 134 mmol/L (135-145)
[2019-01-16 00:50] LABS: Troponin I 0.05 ng/mL (<0.04)
[2019-01-16 01:14] LABS: TSH (Thyroid Stimulating Horm) 4.09 mcIU/mL (0.34-5.60)
[2019-01-16] MEDS ORDERED: levETIRAcetam 1000MG IVPREMIX* 1,000 MG/100 ML BAG IVPB ONE (01:57)
[2019-01-16] MEDS ORDERED: Labetalol IV* 5 MG/ML 20 ML VIAL IV PUSH ONE ×2 (01:57→02:20)
[2019-01-16] MEDS ORDERED: Ondansetron INJ* 2 MG/ML VIAL IV ONE (02:14)
[2019-01-16 02:34] LABS: Mean Platelet Volume 8.3 fL (7.4-10.4); Platelet Count 3593 10^3/uL (150-450)
[2019-01-16 02:37] LABS: Polychromasia 1+
--- NOTE | 2019-01-16 03:03 | HP ---
H&P (Free Text) History and Physical: History and Physical Date of Admission: 01/16/19 CC: Fall HPI: This is an 83 year old female with past medical history significant for HTN and CLL who presented to [facility] ED with complaint of fall, sustaining injury to the head. She is unable to provide a detailed history secondary to drowsiness. She does report headache, nausea and tiredness. States that she just wants to fall alseep. According to ED provider, when she arrived she was alert, oriented and able to answer all questions appropriately, provide history. Over the past 2 hours, her mental status has declined and she has become less alert. CT brain was obtained showing acute right frontal SDH. She has been tachycardic and hypertensive in the ED. She was given labetalol, zofran , keppra 1000mg and tylenol in the ED. She last ate dinner around 5, denies food or drink after. Past Medical History: 1. HTN 2. CLL Past Surgical History: 1. Breast biopsy Home medications: Allergies: 1. Penicillins 2. Fluconazole Social History: This patient lives alone at [place]. Health care proxy is her daughter, Paola [phone] Physical Exam: Vital Signs: Temp Pulse Resp BP Pulse Ox 98.0 F 106 26 185/107 90 01/15/19 23:50 01/16/19 00:32 01/16/19 01:00 01/16/19 00:20 01/16/19 00:32 General: Awakes easily to voice, drowsy. HEENT: Head is normocephalic and atraumatic, pupils equal and sluggish, EOMI CV: Tachycardia Neuro: Oriented to person, place, situation. CN II-XII intact. Strength 5/5 upper and lower extremities bilaterally. Sensation intact throughout. No pronator drift. Extremities: Mild bilateral pedal edema Imagin. CT brain shows acute right frontal SDH Assessment and Plan: This is a 83 year old female who presented to [facility] ED after a fall and was found to have right frontal SDH on CT brain. Patient will be taken urgently to OR for right frontal craniotomy for SDH evacuation.
[2019-01-16] MEDS ORDERED: Propofol* 10 MG/ML 20 ML BTL ONE (03:09)
[2019-01-16] MEDS ORDERED: Lidocaine 2% PF * 5 ML VIAL ONE (03:09)
[2019-01-16] MEDS ORDERED: Rocuronium* 10 MG/ML VIAL ONE ×2 (03:10→06:40)
[2019-01-16] MEDS ORDERED: fentaNYL* 50 MCG/ML 2 ML VIAL (100 MCG VIAL) ONE (03:18)
[2019-01-16] MEDS ORDERED: Lidocain 1% EPI 1:100,000 * 30 ML MDV ONE (03:35)
[2019-01-16] MEDS ORDERED: Thrombin 5,000 UNITS* 1 APPLIC KIT - topical use - TOPICAL ONE ×3 (03:35→05:26)
[2019-01-16] MEDS ORDERED: Clindamycin 900 MG IVPREMIX(* 900 MG/50 ML SDV IV ONE (03:59)
[2019-01-16] MEDS ORDERED: Mannitol 25% (12.5 GM) 50 ML* 12.5 GM/50 ML VIAL ONE ×2 (04:01→04:37)
[2019-01-16] MEDS ORDERED: levETIRAcetam IV* 500 MG/5 ML VIAL ONE (05:26)
[2019-01-16 05:27] LABS: Hematocrit 27 % (35-47); Mean Corpuscular HGB Conc 30 g/dL (31-36); Mean Corpuscular Hemoglobin 21 pg (27-31); Mean Corpuscular Volume 71 fL (80-97); Mean Platelet Volume 7.9 fL (7.4-10.4); Platelet Count 2459 10^3/uL (150-450); Red Blood Count 3.78 10^6 /uL (3.70-4.87); Red Cell Distribution Width 21 % (10.5-15); White Blood Count 80.4 10^3/uL (3.5-10.8)
[2019-01-16] MEDS ORDERED: Gelfoam Sponge SIZE 100* SPONGE ONE (05:53)
[2019-01-16 06:29] LABS: Hematocrit 30 % (35-47); Hemoglobin 9.2 g/dL (12.0-16.0)
[2019-01-16 06:49] LABS: BUN/Creatinine Ratio 28.6 (8-20); Calcium 7.2 mg/dL (8.6-10.3); Potassium 4.9 mmol/L (3.5-5.0)
[2019-01-16] MEDS ORDERED: Labetalol IV* 5 MG/ML 20 ML VIAL IV PUSH PRN (06:49)
[2019-01-16] MEDS ORDERED: Morphine 4 MG/ML VIAL (1 ml) 4 MG/ML VIAL IV PRN (06:51)
[2019-01-16] MEDS ORDERED: Propofol* 100 ML ONE (07:17)
[2019-01-16] MEDS: Propofol* 100 ML IV SCH ×2 (07:20→19:36)
[2019-01-16 07:52] LABS: ABS Neutrophils 60.1 10^3/ul (1.5-7.7); Polychromasia 1+
[2019-01-16] MEDS ORDERED: Morphine INJ* 2 MG/ML 1 ML SYRINGE (TWO MG - NEW SYRINGE VERSION) IV PRN (08:42)
[2019-01-16] MEDS: Famotidine IV* 10 MG/ML 2 ML (20 mg) IV SLOW PU SCH (09:30)
[2019-01-16] MEDS: hydrALAZINE IV* 20 MG/ML VIAL IV SLOW PU PRN ×2 (09:30→20:03)
--- NOTE | 2019-01-16 12:05 | PN ---
Date of Service: 01/16/19 Vital Signs: Temp Pulse Resp BP SpO2 FiO2 96.8 F 86 18 121/57 99 45 01/16/19 07:17 01/16/19 11:00 01/16/19 08:00 01/16/19 11:00 01/16/19 11:00 01/16 09:03 Physical Exam: Gen: intubated. sedated. not following Lungs: Decreased BS's, Not using accessory muscles Cardiac: RRR Abdomen: + BS's, Soft, NTP Extremities: No HOLLY Neuro: Not following Fluid Balance (Past 24 Hours): I= O= Net Intake & Output 01/14/19 01/15/19 01/16/19 01/17/19 06:59 06:59 06:59 06:59 Intake Total 100 Output Total 315 Balance 100 -315 Weight 90 lb 115 lb 11.883 oz Intake: IV Fluids 100 CLIJNDAMYCIN 900MG 100 Output: INGRID #1 85 Cranial Drain 17 [place] 213 A Labs: Laboratory Results - last 24 hr 01/16/19 01/16/19 01/16/19 00:19 00:19 00:19 WBC 86.3 H RBC 5.58 H Hgb 11.7 L Hct 40 MCV 71 L MCH 21 L MCHC 30 L RDW 21 H Plt Count 3593 H MPV 8.3 Neut % (Auto) Not Reportable Lymph % (Auto) Not Reportable [place] % (Auto) Not Reportable Eos % (Auto) Not Reportable Baso % (Auto) Not Reportable Absolute Neuts (auto) Not Reportable Absolute Lymphs (auto) Not Reportable Absolute Monos (auto) Not Reportable Absolute Eos (auto) Not Reportable Absolute Basos (auto) Not Reportable Absolute Nucleated RBC Not Reportable Immature Gran % 11.0 H Neutrophils % 60.0 Band Neutrophils % 11.0 H Lymphocytes % 10.0 Reactive Lymphs % 12.0 H Monocytes % 5.0 Eosinophils % 2.0 Basophils % Metamyelocytes % Blast Cells % Nucleated RBC % Not Reportable Abs Neuts (Manual) 61.2 H Abs Lymphs (Manual) 19.0 H Abs Monocytes (Manual) 4.3 H Absolute Eos (Manual) 1.7 H Abs Basophils (Manual) Normal RBC Morphology Not Reportable Polychromasia 1+ Anisocytosis Macrocytosis 1+ Patient Temperature ABG pH ABG pH (Temp Correct) ABG pCO2 ABG pCO2 (Temp Corrct ABG pO2 ABG pO2 (Temp Correct ABG HCO3 ABG O2 Saturation ABG Base Excess Respiration Rate O2 Delivery Device Ventilator Type Vent Mode FiO2 Inspiratory Time PEEP Pressure Support Pressure Control EPAP IPAP BiPAP Sodium 134 L Potassium 4.8 Chloride 106 Carbon Dioxide 18 L Anion Gap 10 BUN 40 H Creatinine 1.43 H Est GFR ( Amer) 42.3 Est GFR (Non-Af Amer) 35.0 BUN/Creatinine Ratio 28.0 H Glucose 182 H Lactic Acid 1.8 Calcium 8.9 Total Bilirubin 0.50 AST 22 ALT 15 Alkaline Phosphatase 94 Troponin I 0.05 H* Total Protein 6.0 L Albumin 4.1 Globulin 1.9 L Albumin/Globulin Ratio 2.2 TSH 4.09 Blood Type Antibody Screen Crossmatch 01/16/19 01/16/19 01/16/19 00:19 05:03 06:16 WBC 80.4 H RBC 3.78 Hgb 8.0 L Hct 27 L MCV 71 L MCH 21 L MCHC 30 L RDW 21 H Plt Count 2459 H D MPV 7.9 Neut % (Auto) Not Reportable Lymph % (Auto) Not Reportable [place] % (Auto) Not Reportable Eos % (Auto) Not Reportable Baso % (Auto) Not Reportable Absolute Neuts (auto) 60.1 H Absolute Lymphs (auto) Not Reportable Absolute Monos (auto) Not Reportable Absolute Eos (auto) Not Reportable Absolute Basos (auto) Not Reportable Absolute Nucleated RBC Not Reportable Immature Gran % 7.0 Neutrophils % 80.0 Band Neutrophils % 2.0 Lymphocytes % 7.0 Reactive Lymphs % Monocytes % 1.0 Eosinophils % 1.0 Basophils % 0.0 Metamyelocytes % 5.0 H Blast Cells % 4.0 H* Nucleated RBC % Not Reportable Abs Neuts (Manual) 69.8 H Abs Lymphs (Manual) 5.6 H Abs Monocytes (Manual) 0.8 Absolute Eos (Manual) 0.8 H Abs Basophils (Manual) 0.0 Normal RBC Morphology Not Reportable Polychromasia 1+ Anisocytosis 1+ Macrocytosis Patient Temperature ABG pH 7.18 L* ABG pH (Temp Correct) ABG pCO2 42 ABG pCO2 (Temp Corrct ABG pO2 160 H ABG pO2 (Temp Correct ABG HCO3 15.4 L ABG O2 Saturation 99.7 H ABG Base Excess -12.2 L Respiration Rate O2 Delivery Device Ventilator Type Vent Mode FiO2 Inspiratory Time PEEP Pressure Support Pressure Control EPAP IPAP BiPAP Sodium Potassium Chloride Carbon Dioxide Anion Gap BUN Creatinine Est GFR ( Amer) Est GFR (Non-Af Amer) BUN/Creatinine Ratio Glucose Lactic Acid Calcium Total Bilirubin AST ALT Alkaline Phosphatase Troponin I Total Protein Albumin Globulin Albumin/Globulin Ratio TSH Blood Type O Positive Antibody Screen Negative Crossmatch See Detail 01/16/19 01/16/19 01/16/19 06:16 06:16 07:12 WBC RBC Hgb 9.2 L Hct 30 L MCV MCH MCHC RDW Plt Count MPV Neut % (Auto) Lymph % (Auto) [place] % (Auto) Eos % (Auto) Baso % (Auto) Absolute Neuts (auto) Absolute Lymphs (auto) Absolute Monos (auto) Absolute Eos (auto) Absolute Basos (auto) Absolute Nucleated RBC Immature Gran % Neutrophils % Band Neutrophils % Lymphocytes % Reactive Lymphs % Monocytes % Eosinophils % Basophils % Metamyelocytes % Blast Cells % Nucleated RBC % Abs Neuts (Manual) Abs Lymphs (Manual) Abs Monocytes (Manual) Absolute Eos (Manual) Abs Basophils (Manual) Normal RBC Morphology Polychromasia Anisocytosis Macrocytosis Patient Temperature Not Reportable ABG pH 7.28 L ABG pH (Temp Correct) Not Reportable ABG pCO2 38 ABG pCO2 (Temp Corrct Not Reportable ABG pO2 89 ABG pO2 (Temp Correct Not Reportable ABG HCO3 18.5 L ABG O2 Saturation 99.0 H ABG Base Excess -8.2 L Respiration Rate 18 O2 Delivery Device Vent Ventilator Type 450 Vent Mode Apvcmv FiO2 50 Inspiratory Time 1.00 PEEP 5 Pressure Support Not Reportable Pressure Control Not Reportable EPAP Not Reportable IPAP Not Reportable BiPAP Not Reportable Sodium 134 L Potassium 4.9 Chloride 109 Carbon Dioxide 17 L Anion Gap 8 BUN 38 H Creatinine 1.33 H Est GFR ( Amer) 46.0 Est GFR (Non-Af Amer) 38.0 BUN/Creatinine Ratio 28.6 H Glucose 223 H Lactic Acid Calcium 7.2 L Total Bilirubin AST ALT Alkaline Phosphatase Troponin I Total Protein Albumin Globulin Albumin/Globulin Ratio TSH Blood Type Antibody Screen Crossmatch Impression: 83 F with CLL s/p SDH and craniotomy. Patient's wishes were known to PMD and family. Patient did not want aggressive medical measures besides being DNR/DNI. After PMD had d/w family who is coming from [place] patient will be terminally extubated. Plan: Continue present measures without any escalation of measures No further scans or blood draws Terminally extubate when all family together and ready Plan d/w PMD. NS aware of plan. Critical Care Time: 35 minutes
[2019-01-16] MEDS: Chlorhexidine MOUTHWASH 0.12%* 15 ML UDC SWISH SPIT SCH ×3 (14:45→23:04)
[2019-01-16] MEDS: levETIRAcetam 500 MG IVPREMIX* 500 MG/100 ML BAG IV SCH (17:21)
[2019-01-16] MEDS: Lactated Ringers 1000 ML Bag* 1,000 ML IV SCH (21:19)
[2019-01-17] MEDS: Chlorhexidine MOUTHWASH 0.12%* 15 ML UDC SWISH SPIT SCH ×6 (02:53→22:23)
[2019-01-17] MEDS: levETIRAcetam 500 MG IVPREMIX* 500 MG/100 ML BAG IV SCH ×2 (06:03→17:39)
[2019-01-17] MEDS: Propofol* 100 ML IV SCH (09:00)
[2019-01-17] MEDS: Famotidine IV* 10 MG/ML 2 ML (20 mg) IV SLOW PU SCH (10:32)
[2019-01-17] MEDS: Lactated Ringers 1000 ML Bag* 1,000 ML IV SCH (10:39)
--- NOTE | 2019-01-17 11:12 | PN ---
Date of Service: 01/17/19 Critical Care Services: waiting for family meeting today for terminal extubation withdrawing to pain remains on low vent settings Vital Signs: Temp Pulse Resp BP SpO2 FiO2 98.1 F 99 20 169/70 99 45 01/17/19 07:00 01/17/19 10:00 01/17/19 06:00 01/17/19 10:00 01/17/19 10:00 01/17 04:44 Physical Exam: Gen: intubated. sedated Lungs: decreased BS's Cardiac: RRR Abdomen: + BS's. Soft, NTP Extremities: No HOLLY Neuro: withdraws to pain Fluid Balance (Past 24 Hours): I= O= Net Intake & Output 01/15/19 01/16/19 01/17/19 01/18/19 06:59 06:59 06:59 06:59 Intake Total 100 8856 Output Total 624 70 Balance 100 8232 -70 Weight 90 lb 118 lb 6.212 oz Intake: IV Fluids 100 980 CLIJNDAMYCIN 900MG 100 LR 880 PB - Keppra 100 IVPB 7733 LR 7633 PB - Keppra 100 Medicated IV 143 CC - Propofol/Diprivan 143 Output: INGRID #1 110 10 Cranial Drain 19 0 Shaw 495 60 ADLs: Meal Record Start: 01/16/19 07: 17 Freq: 09,13,18 Status: Hold Protocol: Created 01/16/19 07:17 System (Rec: 01/16/19 07:17 System ICU-C12) Intake and Output Start: 01/15/19 23: 56 Freq: Status: Active Protocol: Created 01/15/19 23:56 System (Rec: 01/15/19 23:56 System ED-C26) Document 01/16/19 08:03 [id number] (Rec: 01/16/19 08:03 [id number] ICU-M35) Intake and Output Start: 01/16/19 07: 17 Freq: Q1HR Status: Active Protocol: Created 01/16/19 07:17 System (Rec: 01/16/19 07:17 System ICU-C12) Document 01/16/19 07:36 [id number] (Rec: 01/16/19 07:36 [id number] ICU-M35) Document 01/16/19 08:00 [id number] (Rec: 01/16/19 10:06 [id number] ICU-M24) Document 01/16/19 09:00 [id number] (Rec: 01/16/19 10:06 [id number] ICU-M24) Document 01/16/19 10:00 [id number] (Rec: 01/16/19 10:06 [id number] ICU-M24) Document 01/16/19 11:00 [id number] (Rec: 01/16/19 11:41 [id number] ICU-M35) Document 01/16/19 15:00 [id number] (Rec: 01/16/19 15:51 [id number] ICU-C07) Document 01/16/19 17:00 [id number] (Rec: 01/16/19 18:10 [id number] ICU-C07) Document 01/16/19 18:16 [id number] (Rec: 01/16/19 18:17 [id number] ICU-C07) Document 01/16/19 19:51 [id number] (Rec: 01/16/19 19:55 [id number] ICU-M35) Document 01/16/19 22:00 [id number] (Rec: 01/16/19 22:02 [id number] ICU-C07) Document 01/16/19 22:56 [id number] (Rec: 01/16/19 22:57 [id number] ICU-C07) Document 01/16/19 23:07 [id number] (Rec: 01/16/19 23:07 [id number] ICU-C07) Document 01/17/19 01:00 [id number] (Rec: 01/17/19 02:26 [id number] ICU-C07) Document 01/17/19 02:00 [id number] (Rec: 01/17/19 02:27 [id number] ICU-C07) Document 01/17/19 04:00 [id number] (Rec: 01/17/19 05:32 [id number] ICU-C07) Document 01/17/19 05:00 [id number] (Rec: 01/17/19 05:32 [id number] ICU-C07) Document 01/17/19 06:00 [id number] (Rec: 01/17/19 06:07 [id number] ICU-M35) Document 01/17/19 07:00 [id number] (Rec: 01/17/19 10:15 [id number] ICU-M24) Document 01/17/19 08:00 [id number] (Rec: 01/17/19 10:15 [id number] ICU-M24) Document 01/17/19 09:00 [id number] (Rec: 01/17/19 10:15 [id number] ICU-M24) Document 01/17/19 10:00 [id number] (Rec: 01/17/19 10:15 [id number] ICU-M24) Plan: Critical Care Time:
[2019-01-17] MEDS ORDERED: Acetaminophen SUPP* 650 MG SUPP PR PRN (11:29)
[2019-01-17] MEDS ORDERED: Ondansetron INJ* 2 MG/ML VIAL IV PRN (11:29)
[2019-01-17] MEDS ORDERED: Lorazepam PYXIS KEY PRN (11:35)
--- NOTE | 2019-01-17 12:01 | PN ---
Progress Note - Progress Note Date of Service: 01/17/19 SOAP: Subjective: []POD # 1 Remains sedated on vent Discussed with Dr. Prasad who has assumed care and made her comfort measures only Objective: []AKI Withdraws to painful stimulus readily even while sedated Breathing over ventilator Assessment: []Difficult to assess neurologically since sedated and post op scan canceled per Dr. Prasad Plan: []Plan extubation today hopefully after weaning from sedation Doubt clinically she is ventilator dependent at this time
[2019-01-17] MEDS: Atropine 1% (ORAL/SL)* 15 ML BTL SL PRN ×3 (12:56→22:32)
[2019-01-17] MEDS: LORazepam INJ* 2 MG/ML 1 ML VIAL IV PUSH PRN (12:58)
[2019-01-17 15:33] VITALS: BP 144/65
[2019-01-17] MEDS: Morphine INJ* 2 MG/ML 1 ML SYRINGE (TWO MG - NEW SYRINGE VERSION) IV PRN ×2 (16:17→22:23)
[2019-01-18] MEDS: Morphine INJ* 2 MG/ML 1 ML SYRINGE (TWO MG - NEW SYRINGE VERSION) IV PRN ×2 (00:14→02:04)
[2019-01-18] MEDS: LORazepam INJ* 2 MG/ML 1 ML VIAL IV PUSH PRN (02:40)
[2019-01-18] MEDS: Chlorhexidine MOUTHWASH 0.12%* 15 ML UDC SWISH SPIT SCH (02:41)
--- NOTE | 2019-01-18 12:23 | DS ---
CC: Winsome Laguna MD * SUMMARY: DATE OF ADMISSION: 01/15/19 DATE OF : 01/18/19 FINAL DIAGNOSES: 1. Subdural hematoma. 2. 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 3. History of depression. 4. History of hypertension. 5. Anemia. 6. History of anxiety. HISTORY: Andria Thurston was an 83-year-old woman admitted after falling at assisted living. Please see the dictated admission note for details of the present illness, past medical history, family history, social and personal history, review of systems, physical examination. LABORATORY DATA: CBC on 01/16/19; WBC 86.3, H and H 11.7/40, PLT 3593K, 11% immature granulocytes, 60% neutrophils, 11% bands, 10% lymphocytes, 12% reactive lymphs, 5% monocytes, 2% eosinophils. Differential; 61.2% neutrophils , 19% lymphocytes, 4.3% monocytes, 1.7% eosinophils. [employer] Equipment Repairer/pathologist report pending. CBC on 01/16/19, WBC 80.4, H and H 8/27, MCV 71, PLT 2459K. Differential; 7% immature granulocytes, 80% neutrophils, 2% bands, 7% lymphocytes, 1% monocytes, 1% eosinophils, 5% metamyelocytes, 4% blasts. H and H on 01/16/19 one hour later was 9.2/30. ABGs on 01/16/19, pH 7.18, pCO2 42, pO2 160. ABGs on 01/16/19 at 7:12, pH 7.28, pCO2 38, pO2 89. Chemistries on 01/16/19 at 0019, sodium 134, potassium 4.8, chloride 106, CO2 18 , BUN and creatinine 40/1.43, glucose 182. Rest of her comprehensive metabolic panel was within normal limits except for total protein 6, globulin 1.9, troponin was slightly elevated at 0.05. Repeat BMP on 01/16/19 at 0616, sodium 134, potassium 4.9, chloride 109, CO2 17, BUN and creatinine 38/1.33, glucose 223. Calcium 7.2. MRSA not detected. Blood was O positive. The patient received 2 units of packed cells. IMAGING: Brain CT on 01/15/19 showed a right subdural hematoma measuring up to 15 mm in thickness with mixed primarily intermediate attenuation components overlying the frontal, temporal and parietal lobes. There is associated midline shift right to left of 7 mm at the level of the mildly dilated ventricles. Cervical spine CT 01/15/19, no acute fractures or subluxation of the cervical spine. Chest, abdomen, and pelvis CT showed hepatosplenomegaly, moderate pericardial effusion with a large heart, osteopenia, [id number] skeletal degenerative changes. Chest x-ray 01/16/19 showed cardiogenic pulmonary edema, endotracheal tube. EKG on 01/15/19, 2357 showed probable LVH with secondary repolarization abnormalities. [place] more rightward compared to 06/05/17 EKG. Limb lead voltages diminished and anterior voltages increased. HOSPITAL COURSE: The patient was initially evaluated in the emergency room. Neurosurgery was contacted. She received 1 g of Keppra and it was advised to keep her target systolic blood pressure less than 160. Her initial blood pressure was 207/118 compared to the initial presentation of 179/107. She was given labetalol 5 mg and blood pressure lowered to 174/97 with heart rate in the 80s. She then received another 5 mg of labetalol and target blood pressure was achieved at 153/97 with heart rate remaining in the 70 to 80s. Neurosurgeon and PA came in and planned for emergent evacuation of SDH. Daughter gave consent. Patient was drowsy but arousable. While in the emergency room, she did deteriorate, began to vomit, was diaphoretic prior to be taken to the OR. The daughter, who was contacted said that she would go along with whatever her mother wanted to do. The patient was taken to the OR. The subdural hematoma was evacuated. She returned to the ICU, intubated on ventilator. I saw her the next morning. I reviewed her MOLST form, which stated DNR and do not intubate. She was nonresponsive. I discussed with her family. I contacted her healthcare proxy, Ivette Thurston, who is her daughter-in- law in [place]. I requested that she come up to [place]. She and her made arrangements to come up. Based on the patient's MOLST and previous wishes , the family decided to remove the ventilator. 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 This was discussed with oncologist on-call, Dr. Leal. She did not regain consciousness. She had large amount of bleeding from her surgical site. She was seen by the warehouse inventory clerk, Dr. Yanes. He agreed with terminal extubation. This was done at 12:50 p.m. on 01/17/19. The patient was breathing but appeared comfortable after extubation. The patient did not regain consciousness and was given morphine, lorazepam p.r.n. as well as atropine for secretions. She had drop in blood pressures throughout the night. She at 03:15 a.m. on 01/18/19. Family was notified. [id number]/[facility] #: [id number] MTDD
[2019-01-18 14:29] LABS: ABS Basophils 0.5 10^3/ul (0-0.2); ABS Eosinophils 1.2 10^3/ul (0-0.6); ABS Lymphocytes 9.1 10^3/ul (1.0-4.8); ABS Monocytes 2.7 10^3/ul (0-0.8); ABS Neutrophils 72.8 10^3/ul (1.5-7.7); ABS Nucleated RBC 0.2 10^3/ul; Eosinophil % 1.4 %; Lymphocyte % 10.6 %; Nucleated Red Blood Cells % 0.2
[2019-01-18 14:32] LABS: ABS Eosinophils 1.1 10^3/ul (0-0.6); ABS Lymphocytes 9.3 10^3/ul (1.0-4.8); ABS Monocytes 2.5 10^3/ul (0-0.8)
[2019-01-18 14:33] LABS: ABS Basophils 7.2 10^3/ul (0-0.2); ABS Nucleated RBC 0.2 10^3/ul; Eosinophil % 1.4 %; Lymphocyte % 11.6 %
--- NOTE | 2019-01-19 11:03 | OP ---
DATE OF OPERATION: 01/16/19 - ROOM #ICU-10 DATE OF : 33 PRIMARY SURGEON: Toni Gonzalez MD. BIOCHEMISTRY TECHNOLOGIST: GARCÍA Gerard. ANESTHESIA: General. PRE-OP DIAGNOSIS: Right acute subdural hematoma. POST-OP DIAGNOSIS: Right acute subdural hematoma. OPERATIVE PROCEDURE: Right frontotemporoparietal craniotomy with evacuation of right acute subdural hematoma, partial temporal lobectomy. DESCRIPTION OF PROCEDURE: After satisfactory general anesthesia was obtained, the right side of the head was clipped, prepped and draped in sterile manner for a right-sided trauma craniotomy flap. A skin incision was outlined at zygomatic arch 1 cm anterior to the tragus and is tinted up in a question fernando shape into the parietooccipital area and then curving anteriorly 3 cm to the right of midline ending in the mid frontal region. This incision was infiltrated with 1% Xylocaine with epinephrine, after which it was turned down sharply to the subcutaneous tissues and galea. The scalp flap was reflected anteriorly. The temporalis muscle and fascia were divided to enable placement of bur holes, one at the most medial frontal aspect of exposure, the second in the temporal region and a third at the posterior aspect of the exposure. A freed bone flap was then removed utilizing the craniotome. The dura was quite adherent to bone and a minimal amount of the dura was left behind. Upon turning the bone flap, there was noted to be a marked acute subdural collection. This was decompressed utilizing suction and irrigation. Initially, the brain was quite swollen, but with additional mannitol and hyperventilation, the intracranial pressure became more manageable. There continued to be significant bleeding from beneath the mesial surface of the temporal lobe. This required a partial temporal lobectomy to enable identification of the bleeding site. Ultimately, a bleeding site was identified in the region of the petrosal bone posteriorly and medially in the temporal exposure. This was controlled with the bipolar forceps and Gelfoam. The hemispheric surface was explored and was irrigated free of any subdural blood. Two pieces of DuraGen artificial dura were then used to cover the exposed brain. The cranial flap was replaced with plates and screws. Prior to placement of the cranial flap, a subdural drain was placed and tunneled out anteriorly. A subgaleal drain was in place and tunneled out toward the left side. The galea was then reapproximated with 0 Vicryl suture. The subcutaneous tissues were closed with 3-0 Vicryl suture and the skin closed with skin clips. The estimated blood loss was 500 cc and the final sponge, padding and needle counts were correct. The patient was taken to the intensive care unit, intubated and in critical condition. [id number]/[facility] #: [id number] MTDD
== END 2019-01-18 03:15 | disposition expired | DRG 25 ==
LOC: ED 23:34 → OR 01-16 06:58 → ICU 01-16 07:14
PROVIDERS: ADMIT Neurological Surgery; ATTEND Internal Medicine Geriatric Medicine
PROC: 00B70ZZ Excision of Cerebral Hemisphere, Open Approach (ICD-10-PCS; 2019-01-16)
PROC: 30233N1 Transfusion of Nonautologous Red Blood Cells into Peripheral Vein, Percutaneous Approach (ICD-10-PCS; 2019-01-16)
PROC: 5A1945Z Respiratory Ventilation, 24-96 Consecutive Hours (ICD-10-PCS; 2019-01-16)
PROC: 0BH17EZ Insertion of Endotracheal Airway into Trachea, Via Natural or Artificial Opening (ICD-10-PCS; 2019-01-16)
PROC: 0W9 Anatomical Regions, General, Drainage (ICD-10-PCS; principal; 2019-01-16 04:00)
DX: S06.5X0A Traumatic subdural hemorrhage without loss of consciousness, initial encounter (principal); S06.1X0A Traumatic cerebral edema without loss of consciousness, initial encounter; C91.10 Chronic lymphocytic leukemia of B-cell type not having achieved remission; I31.3 Pericardial effusion (noninflammatory); C95.00 Acute leukemia of unspecified cell type not having achieved remission; W18.30XA Fall on same level, unspecified, initial encounter; D46.9 Myelodysplastic syndrome, unspecified; F32.89 Other specified depressive episodes; I10 Essential (primary) hypertension; F41.9 Anxiety disorder, unspecified; Z66 Do not resuscitate; Z51.5 Encounter for palliative care; M85.80 Other specified disorders of bone density and structure, unspecified site; Y92.099 Unspecified place in other non-institutional residence as the place of occurrence of the external cause; Z88.0 Allergy status to penicillin; Z88.8 Allergy status to other drugs, medicaments and biological substances
CPT/HCPCS: 36415; 70450; 71045; 71250; 72125; 74176; 80048; 80053; 82803; 83605; 84443; 84484; 85014; 85018; 85025; 85060; 86850; 86900; 86901; 86922; 87641; 93005; 94002; 94003; 99284; A9270-GY; C1713; C1776; J0360; J1953; J2060; J2150; J2270; J2405; J2704; J3010; P9040